=== PATIENT | female | born 1950 | race Caucasian/White ===

== ENCOUNTER 2021-10-12 13:15 | Outpatient (CLI) | payer MEDICARE, SELFPAY ==
--- NOTE | ~2021-10-12 | MR_ITS ---
EXAMINATION: MR cervical spine wo con EXAM DATE: 10/12/2021 14:27 INDICATION: Cervical Radiculopathy. TECHNIQUE: Multi-sequential, multiplanar MR images of the cervical spine were obtained without contra st. Axial T2, axial T2 MERGE sequence. Sagittal T1, T2, T2 fat saturation images also obtained. Th ere is no prior study for comparison. FINDINGS: There is moderate to severe loss of the C5-6 disc height, moderate loss at C4-5. There is 2-3 mm anterolisthesis C3 on C4. The vertebral bodies are otherwise aligned. The spinal cord signal i ntensity and intrinsic morphology is normal. Cervicomedullary junction is normal in appearance. There are no suspicious marrow signal abnormalities. Paraspinal soft tissue is unremarkable. Level by level evaluation: C2-C3: Disc does not extend beyond the endplate margin. Uncovertebral joint arthropathy: None. Facet joint arthropathy: Fused right, partially fused left. Neural foraminal stenosis: No stenosis. Central canal stenosis: No stenosis. C3-C4: There is a mild diffuse disc bulge. Uncovertebral joint arthropathy: Mild bilateral. Facet joint arthropathy: Moderate to severe bilateral. Neural foraminal stenosis: Moderate to severe left, moderate right. Central canal stenosis: Mild. C4-C5: There is a mild diffuse disc bulge. Uncovertebral joint arthropathy: Mild to moderate partially fused. Facet joint arthropathy: Bulky left but fused bilaterally. Neural foraminal stenosis: Mild bilateral. Central canal stenosis: No stenosis. C5-C6: There is a minimal diffuse disc bulge. Uncovertebral joint arthropathy: Mild to moderate right, mild left, but fused bilaterally. Facet joint arthropathy: Fused left, partially fused right. Neural foraminal stenosis: No stenosis. Central canal stenosis: No stenosis. C6-C7: There is a mild diffuse disc bulge. Uncovertebral joint arthropathy: Mild to moderate right, mild left. Facet joint arthropathy: Mild bilateral. Neural foraminal stenosis: No stenosis. Central canal stenosis: No stenosis. C7-T1: There is a mild diffuse disc bulge. Uncovertebral joint arthropathy: Mild to moderate bilateral. Facet joint arthropathy: Mild to moderate left, mild right. Neural foraminal stenosis: No stenosis. Central canal stenosis: No stenosis. IMPRESSION: 1. Advanced upper cervical facet arthropathy. Reviewed, dictated and finalized at location G. [employer]
== END 2021-10-12 13:16 | disposition home or self-care (01) ==
LOC: ANHIMG 13:24
PROVIDERS: PCP Internal Medicine
DX: M47.813 Spondylosis without myelopathy or radiculopathy, cervicothoracic region (principal); M48.03 Spinal stenosis, cervicothoracic region
CPT/HCPCS: 72141

== ENCOUNTER 2022-04-17 10:37 | Outpatient (CLI) | payer MEDICARE, SELFPAY ==
--- NOTE | ~2022-04-17 | MR_ITS ---
EXAMINATION: MR knee RT wo con DATE: 04/17/2022 11:35 INDICATION: Right knee pain TECHNIQUE: Magnetic resonance imaging (MRI) of the right knee was performed without intravenous contr ast. Sequences included coronal PD-weighted FSE, coronal PD-weighted FS FSE, sagittal T2-weighted FS E, sagittal PD-weighted FS FSE and axial PD weighted fat saturated FSE. COMPARISON: None. FINDINGS: Medial compartment: Medial meniscus is normal. Deep chondral fissure with underlying edema-like marrow signal change at t he anterior aspect of the medial tibial plateau. More extensive deep chondral fissuring along the ant erior to posterior weightbearing medial femoral condyle with minimal underlying cortical irregularity and edema-like signal change at the junction of the central to posterior weightbearing medial femora l condyle. Lateral compartment: Lateral meniscus is normal. Deep chondral fissure without degenerative subchondral changes at the michael tral aspect of the lateral tibial plateau. Patellofemoral compartment: Deep chondral ulceration and fissuring with underlying edema-like signal change and mild cortical irr egularity at the patellar apical ridge and portions of the adjacent medial and lateral facets as well as at the juxtaposed medial and lateral trochlea and intervening trochlear groove. Ligaments and tendons: Anterior and posterior cruciate ligaments are normal. The medial collateral ligament and fibular ponce ateral ligament complex are normal. Mild patellar tendinopathy. Small enthesophytes at the patellar i nsertion of the otherwise normal distal quadriceps tendon. The visualized medial and lateral hamstrin g tendons as well as the iliotibial band are normal. Fluid: Physiologic amount of fluid in the joint space. No loose osteochondral bodies identified. Osseous/other: Bone alignment is normal. No fracture or pathologic marrow replacing process. IMPRESSION: 1. 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 Reviewed, dictated and finalized at location A. IMPRESSION: 1. 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
== END 2022-04-17 10:38 | disposition home or self-care (01) ==
PROVIDERS: PCP Family Medicine
DX: M25.561 Pain in right knee (principal); G89.29 Other chronic pain; M17.11 Unilateral primary osteoarthritis, right knee
CPT/HCPCS: 73721